=== PATIENT | female | born 1955 | race Caucasian/White ===

== ENCOUNTER → 2017-03-11 | Day surgery (SDC) | payer OTHER ==
[2017-03-04 08:26] VITALS: BMI 27.0
[~2017-03-11] VITALS: Ht 154.9 cm; Wt 65.0 kg
[~2017-03-11] MED LIST: AMLO-110 PO; ASCA500 PO; ASPI-435 PO; ASPI-563 PO; ATROPINE SULFATE 0.1 MG/ML 5ML SYR IV PRN; BUPIVACAINE 0.5 % 5 MG/1 ML MPF 30ML VIAL ONE; CEFAZOLIN 2000MG IV PUSH 10 ML IV SCH; CEFAZOLIN SOD 1 GM VIAL ONE; CEFAZOLIN SOD 2000MG/10 ML IV PUSH IV ONE; DEXAMETHASONE SOD INJ 4 MG/ML VIAL ONE; ECHI1CAP PO; EpHEDrine SULFATE 50MG/5ML SYR ONE; FENTANYL CITRATE INJ 50 MCG/1 ML 2 ML VIAL ONE; GEMF600T3 PO; GLYCOPYRROLATE INJ 0.2 MG/ML VIAL ONE; HEPARIN SOD (PORCINE) 1000 UNIT/ML 10 ML VIAL ONE; KETOROLAC TROMETHAMINE 30 MG/ML VIAL IV. PRN; KETOROLAC TROMETHAMINE 30 MG/ML VIAL ONE; LACTATED RINGER'S 1000ML 1,000 ML IV SCH; LIDOCAINE HCL 2% 2 ML VIAL (20MG/ML) ONE; MIDAZOLAM HCL 1 MG/ML 2ML VIAL ONE; MoRPHine SULFATE 4 MG/ML 1 ML CARP\\VIAL IV PRN; NEOSTIGMINE METHYLSULFATE 5 MG/5 ML SYR ONE; ONDANSETRON INJ 2 MG/ML 2 ML VIAL IV PRN; ONDANSETRON INJ 2 MG/ML 2 ML VIAL ONE; OXYCODONE/ACETAMINOPHEN 5-325 TAB PO PRN; PHENYLEPHRINE 100MCG/ML 5ML SYR ONE; PRLSR20 PO; PROPOFOL IV EMULSION 10 MG/ML 20 ML VIAL IV ONE; ROCURONIUM BROMIDE 10 MG/ML 5 ML VIAL IV ONE; SODIUM CHLORIDE 0.9% 1000ML 1,000 ML IV SCH; SUMA100T16 PO; TEMA15CA4 PO
[2017-03-11 09:25] VITALS: BP 139/86; PULSE 68; TEMP 36.7; O2SAT 100; Ht 154.9 cm; Wt 65.0 kg
--- NOTE | 2017-03-11 10:55 | History & Physical Bridge Note ---
H&P Re-Evaluation Bridge Note: I have examined the patient, reviewed the History & Physical and in the interval since the performance of the History & Physical I have noted the following changes of clinical significance: No changes noted
--- NOTE | 2017-03-11 12:46 | [facility] Post Operative Brief Note ---
Immediate Operative Summary Operative Date Mar 11, 2017. Pre-Operative Diagnosis Cholelithiasis, Gallbladder polyp, Chronic Cholecystitis Post-Operative Diagnosis same as pre-operative Procedure(s) Performed Laparoscopic Cholecystectomy Surgeon Dr. Antonio Sanchez Block Handler Surgeon(s) MELISSA Vasquez Estimated Blood Loss 5ml Findings See dictation Specimens Specimen A) gallbladder and contents Drains None Anesthesia General Complication(s) None Disposition Recovery Room / PACU
--- NOTE | 2017-03-11 12:48 | Discharge Instructions ---
Discharge Instructions Date of Service Mar 11, 2017. Admission Reason for Admission: Calculous of Gallbladder Discharge Discharge Diagnosis / Problem: Same Discharge Goals Goal(s): Decrease discomfort Activity Recommendations Activity Limitations: per Instructions/Follow-up section Lifting Limitations: no more than 10 pounds (for 2 weeks) Shower/Bathe: tomorrow (shower only) . Instructions / Follow-Up Instructions / Follow-Up Post-Surgical ~ Discharge Instructions Activity Recommendations: - lifting limitation: (10 pounds for 2 weeks), - exercise/sex/sports limit: (nonstrenuous for 2 weeks), - driving or machine use limit: (none for 1 week), - Shower/bathe limit: (may shower beginning tomorrow) Diet: - Resume previous diet SPECIAL CARE INSTRUCTIONS: - May shower in 24 hours. Let water run over area and pat dry. - Leave steri strips on for one week. - Call the surgeon's office with any questions or concerns - - (ex. temperature higher than 101 degrees F, excessive bleeding or pain). MEDICATIONS: - Resume previous medications unless instructed otherwise by your surgeon. - Ibuprofen 600 mg every 6 hours with food - Percocet 1 every 4 hours, as needed for pain FOLLOW UP VISIT: - If not already scheduled, please call the office to schedule a two week follow-up appointment. Office number Current Hospital Diet Patient's current hospital diet: Discharge Diet Recommended Diet: Regular Diet Procedures Procedures Performed: Laparoscopic Cholecystectomy Pending Studies Studies pending at discharge: yes List of pending studies: Pathology Medical Emergencies . Who to Call and When: Medical Emergencies: If at any time you feel your situation is an emergency, please call 911 immediately. . Non-Emergent Contact Non-Emergency issues call your: Primary Care Provider, Surgeon Call Non-Emergent contact if: your pain is worsening, wound has increased redness, wound has increased pain . "Provider Documentation" section prepared by Antonio Sanchez. . VTE Core Measure Inpt VTE Proph given/why not?: Treatment not indicated
[2017-03-11] MEDS: FENTANYL CITRATE INJ 50 MCG/1 ML 2 ML VIAL IV PRN ×2 (12:52→12:59)
[2017-03-11 13:26] VITALS: BP 96/60; PULSE 58; TEMP 36.2; O2SAT 93
--- NOTE | 2017-03-11 13:52 | Anesthesiology Progress Note ---
Anesthesia Post Op Note Date & Time Mar 11, 2017 at 13:52 Vital Signs Pain Intensity: 4 Vital Signs Past 12 Hours Date Time Temp Pulse Resp B/P (MAP) Pulse Ox O2 Delivery O2 Flow Rate FiO2 03/11/17 13:26 36.2 58 18 96/60 93 Room Air 03/11/17 13:20 36.5 67 23 107/57 96 Room Air 03/11/17 13:10 61 14 103/64 94 Room Air 03/11/17 13:00 56 12 114/70 99 Oxymask 10 03/11/17 12:50 65 15 105/75 100 Oxymask 10 03/11/17 12:43 36.8 74 12 118/69 100 Oxymask 10 03/11/17 09:25 36.7 68 20 139/86 (103) 100 Room Air Notes Mental Status: alert / awake / arousable, participated in evaluation Pt Amnestic to Procedure: Yes Nausea / Vomiting: adequately controlled Pain: adequately controlled Airway Patency, RR, SpO2: stable & adequate BP & HR: stable & adequate Hydration State: stable & adequate Anesthetic Complications: no major complications apparent
[2017-03-11 13:56] VITALS: BP 94/58; PULSE 69; O2SAT 93
[2017-03-11 14:26] VITALS: BP 100/54; PULSE 60; O2SAT 93
--- NOTE | 2017-03-11 21:04 | OPERATIVE REPORT ---
DATE OF OPERATION: 03/11/2017 PREOPERATIVE DIAGNOSES: Cholelithiasis, gallbladder polyp, and chronic cholecystitis. POSTOPERATIVE DIAGNOSES: Same. PROCEDURE: Laparoscopic cholecystectomy. SURGEON: Antonio Sanchez MD 911 [facility] DISPATCHER: Mindy Jasso PA-C FINDINGS: The gallbladder was not dilated. There were no adhesions to the gallbladder. The cystic duct was not dilated. The liver was of normal size and contour. The visible bowel appeared normal. TECHNIQUE: The patient was given a general anesthetic and the area was prepped and draped in usual sterile fashion. Transverse incision was made below the umbilicus, carried down through the subcutaneous tissue to the fascia which was grasped with 2 Julia clamps and incised between. Peritoneum was identified, incised, and the introducer was placed bluntly. The abdomen was then insufflated to a pressure of 15 mmHg with carbon dioxide. The upper midline, mid clavicular and anterior axillary introducers were placed under direct vision through small skin incisions. Traction was placed on the gallbladder beginning on the lateral side of the infundibulum, the peritoneum was opened and the infundibulum was dissected away from the liver on that side. Dissection was then carried over the infundibulum into the triangle of Calot in a similar fashion. The infundibulum was dissected away from the liver on the medial side allowing for much better mobilization and movement of the infundibulum which allowed me then to identify the cystic duct and skeletonize it on the medial side and then establish a plane behind it. Further dissection of the infundibulum away from the liver was performed. I was then able to identify the cystic artery and isolate it. Three clips were placed on the proximal cystic duct, 1 near the gallbladder and it was divided. The cystic artery was then clamped 3 times proximally and once near the gallbladder and divided. The gallbladder was then peeled off the liver bed. There was 1 posterior branch of the artery that was encountered and was clipped and divided. At the completion of dissection of the gallbladder off the liver was performed, the gallbladder was then placed into an Endobag and brought out through the upper midline incision with ease. That introducer was replaced and the liver edge was elevated. The subdiaphragmatic and subhepatic spaces were irrigated and irrigation was removed. The gallbladder bed of the liver was inspected and there was no bleeding. The previously placed clips were inspected and were intact. The gas was allowed to escape and the introducers were removed. The fascia of the umbilical and upper midline introducer sites was closed with interrupted 0 Vicryl and the skin of all the incisions was closed with 4-0 Monocryl in either interrupted or running subcuticular fashion. The skin was anesthetized with 0.5% Marcaine. The skin was cleansed, dried, benzoin placed, Steri-Strips applied. The estimated blood loss was 5 mL. Sponge, needle and instrument counts were correct prior to closure. The patient tolerated the surgical procedure and was transferred to recovery in stable condition. I attest to the content of the Intraoperative Record and any orders documented therein. Any exception s are noted below.
== END | disposition home or self-care (01) ==
LOC: C.ACU 09:08
PROVIDERS: ATTEND Surgery
DX: K80.10 Calculus of gallbladder with chronic cholecystitis without obstruction (principal); I10 Essential (primary) hypertension; E78.5 Hyperlipidemia, unspecified; Z88.5 Allergy status to narcotic agent; Z98.890 Other specified postprocedural states; Z79.899 Other long term (current) drug therapy